=== PATIENT | male | born 1980 | race African-American/Black ===

== ENCOUNTER 2017-05-26 06:47 | Emergency (ER) | payer MEDICAID ==
[~2017-05-26] VITALS: Ht 170.2 cm; Wt 75.0 kg
[2017-05-26] MEDS ORDERED: SODIUM CHLORIDE 0.9% 1,000 ML IV ONE (07:22)
[2017-05-26] MEDS ORDERED: ONDANSETRON HCL 4MG/2ML VIAL IV STA (07:22)
[2017-05-26 08:04] LABS: BASOPHILS % 0.2 % (0.0-2.0); CHLORIDE 105 mEq/L (98-107); EOSINOPHILS % 0.1 % (0.0-5.0); HEMATOCRIT. 43.9 % (42.0-52.0); LYMPHOCYTES % 13.5 % (20.0-50.0); MEAN CORPUSCULAR HEMOGLOBIN 31.3 pg (28.0-32.0); MEAN CORPUSCULAR VOLUME 91.7 fL (80.0-94.0); MEAN PLATELET VOLUME 9.1 fl (7.4-10.4); MONOCYTES % 6.3 % (2.0-8.0); NEUTROPHILS % 79.9 % (40.0-76.0); PLATELET 212 x1000/uL (130-400); RED BLOOD CELL COUNT 4.79 mill/uL (4.7-6.1); RED CELL DISTRIBUTION WIDTH 13.5 % (11.6-14.6)
[2017-05-26 08:06] LABS: INR 1.2; PROTHROMBIN TIME 12.1 sec (9.4-11.6)
[2017-05-26 08:15] LABS: CARBON DIOXIDE 23 mEq/L (21-32)
[2017-05-26 08:42] VITALS: BP 127/84
== END 2017-05-26 08:42 | disposition home or self-care (01) ==
LOC: ER 07:32
DX: F12.90 Cannabis use, unspecified, uncomplicated (principal); R00.2 Palpitations; F17.200 Nicotine dependence, unspecified, uncomplicated
CPT/HCPCS: 36415; 71010; 80053; 85025; 85610; 93005; 96361; 96374; 99285; J2405; Z7610; J7030

== ENCOUNTER 2019-01-11 08:58 | Emergency (ER) | payer MEDICAID ==
[~2019-01-11] VITALS: Ht 172.7 cm; Wt 78.0 kg
[2019-01-11] MEDS ORDERED: SODIUM CHLORIDE 0.9% 1,000 ML IV ONE (10:26)
[2019-01-11 10:49] LABS: BASOPHILS % 0.8 % (0.0-2.0); EOSINOPHILS % 0.6 % (0.0-5.0); HEMATOCRIT. 40.8 % (42.0-52.0); HEMOGLOBIN. 13.8 g/dL (14.0-18.0); LYMPHOCYTES % 19.7 % (20.0-50.0); MEAN CORPUSCULAR HEMOGLOBIN 31.8 pg (28.0-32.0); MEAN CORPUSCULAR VOLUME 94.3 fL (80.0-94.0); MEAN PLATELET VOLUME 8.8 fl (7.4-10.4); MONOCYTES % 4.1 % (2.0-8.0); NEUTROPHILS % 74.8 % (40.0-76.0); PLATELET 196 x1000/uL (130-400); RED BLOOD CELL COUNT 4.33 mill/uL (4.7-6.1); RED CELL DISTRIBUTION WIDTH 13.3 % (11.6-14.6)
[2019-01-11 10:55] LABS: CHLORIDE 108 mEq/L (98-107)
[2019-01-11 11:47] VITALS: BP 144/71
[2019-01-11 11:47] LABS: CLARITY URINE CLEAR (CLEAR); COLOR URINE YELLOW (YELLOW); KETONES URINE NEGATIVE (NEGATIVE); LEUKOCYTE ESTERASE URINE NEGATIVE (NEGATIVE); NITRITE URINE NEGATIVE (NEGATIVE); OCCULT BLOOD URINE NEGATIVE (NEGATIVE); PH URINE 7.5 (4.5-8.0); PROTEIN URINE NEGATIVE (NEGATIVE); SPECIFIC GRAVITY URINE 1.019 (1.005-1.030); UROBILINOGEN URINE 0.2 E.U./dL (0.2-1.0)
== END 2019-01-11 12:50 | disposition home or self-care (01) ==
LOC: ER 08:58
DX: R07.89 Other chest pain (principal); D72.829 Elevated white blood cell count, unspecified; F12.10 Cannabis abuse, uncomplicated; F14.10 Cocaine abuse, uncomplicated; F17.210 Nicotine dependence, cigarettes, uncomplicated
CPT/HCPCS: 36415; 71045; 80053; 81003; 85025; 93005; 96360; 99284; 99406; J7030

== ENCOUNTER 2019-02-28 14:22 | Emergency (ER) | payer MEDICAID ==
[~2019-02-28] VITALS: Ht 170.2 cm; Wt 77.0 kg
[2019-02-28 18:06] LABS: BASOPHILS % 0.5 % (0.0-2.0); EOSINOPHILS % 1.2 % (0.0-5.0); HEMATOCRIT. 40.8 % (42.0-52.0); HEMOGLOBIN. 13.8 g/dL (14.0-18.0); LYMPHOCYTES % 32.6 % (20.0-50.0); MEAN CORPUSCULAR HEMOGLOBIN 31.7 pg (28.0-32.0); MEAN CORPUSCULAR VOLUME 93.8 fL (80.0-94.0); MEAN PLATELET VOLUME 9.2 fl (7.4-10.4); MONOCYTES % 3.2 % (2.0-8.0); NEUTROPHILS % 62.5 % (40.0-76.0); PLATELET 243 x1000/uL (130-400); RED BLOOD CELL COUNT 4.35 mill/uL (4.7-6.1); RED CELL DISTRIBUTION WIDTH 13.3 % (11.6-14.6)
[2019-02-28 18:08] LABS: CHLORIDE 108 mEq/L (98-107)
[2019-02-28 18:09] LABS: CLARITY URINE CLEAR (CLEAR); COLOR URINE YELLOW (YELLOW); KETONES URINE NEGATIVE (NEGATIVE); LEUKOCYTE ESTERASE URINE NEGATIVE (NEGATIVE); NITRITE URINE NEGATIVE (NEGATIVE); OCCULT BLOOD URINE NEGATIVE (NEGATIVE); PH URINE 6.5 (4.5-8.0); PROTEIN URINE NEGATIVE (NEGATIVE); SPECIFIC GRAVITY URINE 1.008 (1.005-1.030); UROBILINOGEN URINE 0.2 E.U./dL (0.2-1.0)
[2019-02-28 18:11] LABS: ETHANOL BLOOD < 10 mg/dL
[2019-02-28 18:20] LABS: *AMPHETAMINES SCREEN URINE NEGATIVE (NEGATIVE); *BARBITURATES SCREEN URINE NEGATIVE (NEGATIVE); *BENZODIAZEPINES SCREEN URINE NEGATIVE (NEGATIVE); *COCAINE SCREEN URINE PRESUMTIVE POSITIVE (NEGATIVE)
[2019-02-28 18:21] LABS: CANNABINOID URINE SCREEN PRESUMTIVE POSITIVE (NEGATIVE); METHADONE URINE SCREEN NEGATIVE (NEGATIVE); OPIATES URINE SCREEN NEGATIVE (NEGATIVE); PHENCYCLIDINE URINE SCREEN NEGATIVE (NEGATIVE)
[2019-02-28 22:50] VITALS: BP 120/72
== END 2019-02-28 23:09 | disposition home or self-care (01) ==
LOC: ER 16:16
DX: F14.129 Cocaine abuse with intoxication, unspecified (principal); R07.89 Other chest pain; R10.11 Right upper quadrant pain; I49.9 Cardiac arrhythmia, unspecified; F17.210 Nicotine dependence, cigarettes, uncomplicated
CPT/HCPCS: 36415; 71045; 76705; 80053; 80305; 80320; 81003; 83690; 83880; 84484; 85025; 93005; 99284; Z7610; G0480

== ENCOUNTER 2020-08-12 07:57 | Emergency (ER) | payer MEDICAID ==
[~2020-08-12] VITALS: Ht 170.2 cm; Wt 77.0 kg
[2020-08-12] MEDS ORDERED: MORPHINE SULFATE 4 MG/ML CPJ (NOT FOR IM USE) IV STA (08:45)
[2020-08-12] MEDS ORDERED: ONDANSETRON HCL 4MG/2ML INJ IV STA (08:45)
[2020-08-12 09:03] LABS: BASOPHILS % 0.5 % (0.0-2.0); EOSINOPHILS % 2.3 % (0.0-5.0); HEMATOCRIT. 42.7 % (42.0-52.0); HEMOGLOBIN. 14.5 g/dL (14.0-18.0); LYMPHOCYTES % 33.1 % (20.0-50.0); MEAN CORPUSCULAR HEMOGLOBIN 31.9 pg (28.0-32.0); MEAN CORPUSCULAR VOLUME 93.7 fL (80.0-94.0); MEAN PLATELET VOLUME 8.9 fl (7.4-10.4); MONOCYTES % 5.8 % (2.0-8.0); NEUTROPHILS % 58.3 % (40.0-76.0); PLATELET 211 x1000/uL (130-400); RED BLOOD CELL COUNT 4.56 mill/uL (4.7-6.1); RED CELL DISTRIBUTION WIDTH 13.1 % (11.6-14.6)
[2020-08-12 09:18] LABS: CHLORIDE 108 mEq/L (98-107)
[2020-08-12 10:23] VITALS: BP 99/55
== END 2020-08-12 13:18 | disposition home or self-care (01) ==
LOC: ER 08:10
DX: R07.89 Other chest pain (principal); F17.210 Nicotine dependence, cigarettes, uncomplicated; Z87.442 Personal history of urinary calculi
CPT/HCPCS: 36415; 71045; 80053; 83880; 84484; 85025; 85379; 93005; 96374; 96375; 99285; J2270; J2405

== ENCOUNTER 2021-01-02 12:26 | Emergency (ER) | payer MEDICAID ==
[~2021-01-02] VITALS: Ht 167.6 cm; Wt 75.0 kg
[2021-01-02] MEDS ORDERED: CEFTRIAXONE SODIUM 500 MG/VIAL IM ONE (13:15)
[2021-01-02] MEDS ORDERED: DOXYCYCLINE HYCLATE 100MG CAPSULE PO ONE (13:15)
[2021-01-02] MEDS ORDERED: IBUPROFEN 600MG TABLET PO ONE (13:15)
[2021-01-02 13:37] LABS: CLARITY URINE CLEAR (CLEAR); COLOR URINE YELLOW (YELLOW); KETONES URINE TRACE (NEGATIVE); LEUKOCYTE ESTERASE URINE TRACE (NEGATIVE); NITRITE URINE NEGATIVE (NEGATIVE); OCCULT BLOOD URINE NEGATIVE (NEGATIVE); PROTEIN URINE NEGATIVE (NEGATIVE); SPECIFIC GRAVITY URINE 1.026 (1.005-1.030)
[2021-01-02] MEDS ORDERED: LIDOCAINE HCL 1% 20ML VIAL (Pyxis) INJ INFIL ONE (14:00)
[2021-01-02] MEDS ORDERED: IBUP-2029 MT (14:10)
[2021-01-02] MEDS ORDERED: DOXY100T2 MT (14:11)
[2021-01-02 14:28] VITALS: BP 112/71
[2021-01-06 04:12] LABS: NEISSERIA GONORRHOEAE NAA Negative (Negative)
== END 2021-01-02 14:29 | disposition home or self-care (01) ==
LOC: ER 12:26
DX: N43.3 Hydrocele, unspecified (principal); I49.9 Cardiac arrhythmia, unspecified; Z87.442 Personal history of urinary calculi
CPT/HCPCS: 76870; 81003; 87491; 87591; 93005; 93976; 96372; 99285; J0696; J3490

== ENCOUNTER 2021-12-23 10:09 | Emergency (ER) | payer MEDICAID ==
[~2021-12-23] VITALS: Ht 167.6 cm; Wt 73.0 kg
[~2021-12-23 10:09] MED LIST: DOXY100T2 MT; IBUP-2029 MT
[2021-12-23] MEDS ORDERED: FAMOTIDINE 20MG/2ML VIAL IV STA (10:16)
[2021-12-23] MEDS ORDERED: MAGNESIUM/ALUMINUM HYDROXIDE/SIMETHICONE 30ML UDC PO STA (10:16)
[2021-12-23] MEDS ORDERED: ONDANSETRON HCL 4MG/2ML INJ IV STA (10:16)
[2021-12-23] MEDS ORDERED: SODIUM CHLORIDE 0.9% 1,000 ML IV ONE (10:30)
[2021-12-23 10:50] LABS: BASOPHILS % 0.4 % (0.0-2.0); EOSINOPHILS % 1.5 % (0.0-5.0); HEMATOCRIT. 39.2 % (42.0-52.0); HEMOGLOBIN. 13.4 g/dL (14.0-18.0); LYMPHOCYTES % 24.7 % (20.0-50.0); MEAN CORPUSCULAR HEMOGLOBIN 31.6 pg (28.0-32.0); MEAN CORPUSCULAR VOLUME 92.7 fL (80.0-94.0); MEAN PLATELET VOLUME 8.4 fl (7.4-10.4); MONOCYTES % 7.4 % (2.0-8.0); PLATELET 157 x1000/uL (130-400); RED BLOOD CELL COUNT 4.23 mill/uL (4.7-6.1); RED CELL DISTRIBUTION WIDTH 13.3 % (11.6-14.6)
[2021-12-23 10:56] LABS: CHLORIDE 109 mEq/L (98-107)
[2021-12-23 12:30] VITALS: BP 110/93
[2021-12-23] MEDS ORDERED: IOHEXOL-300 100 ML BOTTLE ONE (13:01)
[2021-12-23] MEDS ORDERED: MAG-55 MT (13:07)
[2021-12-23] MEDS ORDERED: FAMO-135 MT (13:07)
== END 2021-12-23 14:04 | disposition home or self-care (01) ==
LOC: ER 10:09
DX: R10.32 Left lower quadrant pain (principal); K57.30 Diverticulosis of large intestine without perforation or abscess without bleeding; F17.210 Nicotine dependence, cigarettes, uncomplicated; Z87.442 Personal history of urinary calculi; Z80.42 Family history of malignant neoplasm of prostate
CPT/HCPCS: 36415; 74177; 80053; 83690; 85025; 93005; 96361; 96374; 96375; 99285; J2405; J3490; J7030; Q9967

== ENCOUNTER 2022-05-24 12:42 | Emergency (ER) | payer MEDICAID ==
[~2022-05-24] VITALS: Ht 167.6 cm; Wt 74.0 kg
[~2022-05-24 12:42] MED LIST changes: +FAMO-135 MT; +MAG-55 MT
[2022-05-24] MEDS ORDERED: NITROGLYCERIN 0.4MG TABLET SL SL PRN (14:15)
[2022-05-24] MEDS ORDERED: ASPIRIN 81MG TABLET PO ONE (14:15)
[2022-05-24] MEDS ORDERED: KETOROLAC 15MG/ML VIAL IV ONE (14:15)
[2022-05-24 14:22] LABS: BASOPHILS % 0.5 % (0.0-2.0); EOSINOPHILS % 1.3 % (0.0-5.0); HEMATOCRIT. 43.3 % (42.0-52.0); HEMOGLOBIN. 14.5 g/dL (14.0-18.0); MEAN CORPUSCULAR HEMOGLOBIN 31.9 pg (28.0-32.0); MEAN CORPUSCULAR VOLUME 95.2 fL (80.0-94.0); MEAN PLATELET VOLUME 9.7 fl (7.4-10.4); MONOCYTES % 6.7 % (2.0-8.0); NEUTROPHILS % 64.5 % (40.0-76.0); PLATELET 190 x1000/uL (130-400); RED BLOOD CELL COUNT 4.55 mill/uL (4.7-6.1); RED CELL DISTRIBUTION WIDTH 12.7 % (11.6-14.6)
[2022-05-24 14:29] LABS: CHLORIDE 105 mEq/L (98-107)
[2022-05-24] MEDS ORDERED: OMEP20TA23 MT (16:49)
[2022-05-24 16:52] VITALS: BP 111/69
== END 2022-05-24 17:15 | disposition home or self-care (01) ==
LOC: ER 12:42
DX: R07.89 Other chest pain (principal); F17.290 Nicotine dependence, other tobacco product, uncomplicated
CPT/HCPCS: 36415; 71045; 80053; 83880; 84484; 85025; 93005; 96374; 99285; 99406; J1885; Z7610